=== PATIENT | male | born 1940 | race Caucasian/White ===

== ENCOUNTER 2023-02-21 14:09 | Inpatient (IN) | payer MEDICARE ==
[~2023-02-21] VITALS: Ht 182.9 cm; Wt 102.1 kg
[2023-02-21] MEDS: METOPROLOL SUCC *XL* 25MG TAB (TopROL *XL*) PO SCH (09:00)
[~2023-02-21 14:09] MED LIST: CEPH500C PO; CLOTR1CR TOP; DIGO0.123 PO; ELIQ5TAB PO; ENTR1TAB PO; FLUO20CA22 PO; FURO40TA2 PO; HUMA100I5 SC; INSU100I48 SC; METO1TAB7 PO; OMEP-173 PO; ROSU10TA6 PO
[2023-02-21] MEDS ORDERED: ONDANSETRON 4MG TAB PO PRN (14:30)
[2023-02-21] MEDS ORDERED: DEXTROSE 50% 50ML SYRINGE IV PRN (14:30)
[2023-02-21] MEDS ORDERED: GLUCAGON INJ 1MG VIAL SC PRN (14:30)
[2023-02-21] MEDS ORDERED: MAALOX 30 ML SUSP *UDC PO PRN (14:30)
[2023-02-21] MEDS ORDERED: GLUCOSE 4GM CHEW TABLET PO PRN (14:30)
[2023-02-21] MEDS: INSULIN LISPRO (NovoLOG) PER UNIT SC SCH ×2 (17:30→19:59)
[2023-02-21 17:40] VITALS: BP 130/50; TEMP 97; O2SAT 98
[2023-02-21] MEDS: CEPHALEXIN 500 MG CAP PO SCH (18:53)
[2023-02-21 20:00] VITALS: BP 115/56; TEMP 97.6; O2SAT 99
[2023-02-21] MEDS: APIXABAN 5 MG TAB (ELIQUIS) PO SCH (20:33)
[2023-02-21] MEDS: FLUoxetine 20MG CAP PO SCH (20:33)
[2023-02-21] MEDS: DOCUSATE SODIUM 100MG CAPSULE PO SCH (20:33)
[2023-02-21] MEDS: OMEPRAZOLE 20MG CAP PO SCH (20:33)
[2023-02-21] MEDS: LEVEMIR (INSULIN DETEMIR) 1 UNITS/0.01ML SC SCH (20:33)
[2023-02-21] MEDS: ACETAMINOPHEN TAB 650MG DOSE (2X325MG) PO PRN (21:13)
[2023-02-22] MEDS: CEPHALEXIN 500 MG CAP PO SCH ×5 (00:49→23:01)
[2023-02-22 06:00] VITALS: BP 112/59; TEMP 96.8; O2SAT 95
[2023-02-22 06:33] LABS: BASO % 0.5 % (0.0-1.0); EOS # 0.1 10^3/uL (0.0-0.5); EOS % 1.6 % (0.0-3.0); HEMATOCRIT 29.4 % (42.0-52.0); HEMOGLOBIN 10.3 g/dl (13.5-17.5); LYMPH # 1.3 10^3/uL (1.5-5.0); LYMPH % 14.7 % (24.0-44.0); MEAN CORPUSCULAR VOLUME 91.3 fl (80.0-96.0); MONO # 1.1 10^3/uL (0.0-0.8); MONO % 12.5 % (2.0-8.0); PLATELET COUNT, AUTOMATED 138 10^3/uL (150-450); RED BLOOD COUNT 3.22 10^6/uL (4.30-6.10); WHITE BLOOD COUNT 8.5 10^3/uL (4.0-10.0)
[2023-02-22 06:51] LABS: BLOOD UREA NITROGEN 23 MG/DL (9-23); CALCIUM LEVEL 8.5 MG/DL (8.3-10.6); CARBON DIOXIDE LEVEL 25 MMOL/L (20-31); CHLORIDE LEVEL 102 MMOL/L (98-107); CREATININE FOR GFR 0.78 MG/DL (0.70-1.30); GLOMERULAR FILTRATION RATE > 60.0 (>35); GLUCOSE, FASTING 219 MG/DL (74-106); POTASSIUM SERUM 4.4 MMOL/L (3.5-5.1); SODIUM LEVEL 133 MMOL/L (136-145)
[2023-02-22] MEDS: LEVEMIR (INSULIN DETEMIR) 1 UNITS/0.01ML SC SCH ×2 (07:16→20:33)
[2023-02-22] MEDS: ACETAMINOPHEN TAB 650MG DOSE (2X325MG) PO PRN ×3 (07:16→20:33)
[2023-02-22] MEDS: INSULIN LISPRO (NovoLOG) PER UNIT SC SCH ×4 (07:16→20:31)
[2023-02-22] MEDS: DOCUSATE SODIUM 100MG CAPSULE PO SCH ×2 (07:17→20:33)
[2023-02-22] MEDS: OMEPRAZOLE 20MG CAP PO SCH ×2 (07:17→20:33)
[2023-02-22] MEDS: DIGOXIN 0.125 MG TAB PO SCH (07:17)
[2023-02-22] MEDS: APIXABAN 5 MG TAB (ELIQUIS) PO SCH ×2 (07:17→20:33)
[2023-02-22] MEDS: METOPROLOL SUCC *XL* 25MG TAB (TopROL *XL*) PO SCH (07:17)
[2023-02-22] MEDS: FLUoxetine 20MG CAP PO SCH ×2 (07:17→20:33)
[2023-02-22] MEDS: ROSUVASTATIN 10 MG TAB (CRESTOR) PO SCH (07:17)
[2023-02-22] MEDS: CLOTRIMAZOLE 1% TOPICAL CREAM 30GM TOP SCH (07:18)
[2023-02-22] MEDS: FUROSEMIDE 20 MG TAB PO SCH (11:52)
[2023-02-22 14:00] VITALS: BP 104/56; TEMP 97.9; O2SAT 96
[2023-02-22] MEDS: LACTOBACILLUS ACIDOPHILUS CAP (BACID) PO SCH (17:10)
[2023-02-22 20:08] VITALS: BP 155/70; TEMP 98.1; O2SAT 100
[2023-02-23 05:28] VITALS: BP 136/66; TEMP 97.8; O2SAT 98
[2023-02-23] MEDS: CEPHALEXIN 500 MG CAP PO SCH ×3 (05:31→17:16)
[2023-02-23] MEDS: FLUoxetine 20MG CAP PO SCH ×2 (08:42→20:32)
[2023-02-23] MEDS: FUROSEMIDE 20 MG TAB PO SCH (08:42)
[2023-02-23] MEDS: LACTOBACILLUS ACIDOPHILUS CAP (BACID) PO SCH ×2 (08:42→17:16)
[2023-02-23] MEDS: APIXABAN 5 MG TAB (ELIQUIS) PO SCH ×2 (08:42→20:32)
[2023-02-23] MEDS: ROSUVASTATIN 10 MG TAB (CRESTOR) PO SCH (08:42)
[2023-02-23] MEDS: OMEPRAZOLE 20MG CAP PO SCH ×2 (08:42→20:33)
[2023-02-23] MEDS: DOCUSATE SODIUM 100MG CAPSULE PO SCH ×2 (08:42→20:32)
[2023-02-23] MEDS: LEVEMIR (INSULIN DETEMIR) 1 UNITS/0.01ML SC SCH ×2 (08:43→20:32)
[2023-02-23] MEDS: METOPROLOL SUCC *XL* 25MG TAB (TopROL *XL*) PO SCH (08:43)
[2023-02-23] MEDS: DIGOXIN 0.125 MG TAB PO SCH (08:43)
[2023-02-23] MEDS: CLOTRIMAZOLE 1% TOPICAL CREAM 30GM TOP SCH (08:44)
[2023-02-23] MEDS: INSULIN LISPRO (NovoLOG) PER UNIT SC SCH ×4 (08:44→20:36)
[2023-02-23 14:00] VITALS: BP 129/75; TEMP 98; O2SAT 98
[2023-02-23] MEDS ORDERED: FLUZONE HIGH DOSE(65YR UP)QUAD/PF 240MCG/0.7ML SYRINGE IM.IMMUN ONE (18:00)
[2023-02-23 20:00] VITALS: BP 126/54; TEMP 97.3; O2SAT 95
[2023-02-24] MEDS: CEPHALEXIN 500 MG CAP PO SCH ×5 (00:12→23:50)
[2023-02-24] MEDS: NORCO, ANEXSIA 5/325MG TABLET (HYDROcodone/ACETAMINOPHEN) PO PRN ×2 (00:43→18:32)
[2023-02-24 06:00] VITALS: BP 118/59; TEMP 98; O2SAT 96
[2023-02-24] MEDS: DOCUSATE SODIUM 100MG CAPSULE PO SCH ×2 (09:00→20:12)
[2023-02-24] MEDS: LEVEMIR (INSULIN DETEMIR) 1 UNITS/0.01ML SC SCH ×2 (09:17→20:11)
[2023-02-24] MEDS: OMEPRAZOLE 20MG CAP PO SCH ×2 (09:18→20:12)
[2023-02-24] MEDS: FLUoxetine 20MG CAP PO SCH ×2 (09:18→20:11)
[2023-02-24] MEDS: LACTOBACILLUS ACIDOPHILUS CAP (BACID) PO SCH ×2 (09:18→17:37)
[2023-02-24] MEDS: APIXABAN 5 MG TAB (ELIQUIS) PO SCH ×2 (09:18→20:12)
[2023-02-24] MEDS: ROSUVASTATIN 10 MG TAB (CRESTOR) PO SCH (09:18)
[2023-02-24] MEDS: INSULIN LISPRO (NovoLOG) PER UNIT SC SCH ×4 (09:18→20:12)
[2023-02-24] MEDS: METOPROLOL SUCC *XL* 25MG TAB (TopROL *XL*) PO SCH (09:19)
[2023-02-24] MEDS: FUROSEMIDE 20 MG TAB PO SCH (09:19)
[2023-02-24] MEDS: DIGOXIN 0.125 MG TAB PO SCH (09:19)
[2023-02-24] MEDS: CLOTRIMAZOLE 1% TOPICAL CREAM 30GM TOP SCH (09:20)
[2023-02-24 14:00] VITALS: BP 114/58; TEMP 98; O2SAT 97
[2023-02-24 20:00] VITALS: BP 121/59; TEMP 97.6; O2SAT 99
[2023-02-24] MEDS: ACETAMINOPHEN TAB 650MG DOSE (2X325MG) PO PRN (21:23)
[2023-02-25] MEDS: CEPHALEXIN 500 MG CAP PO SCH ×4 (05:41→23:29)
[2023-02-25 06:00] VITALS: TEMP 97.2; O2SAT 98
[2023-02-25] MEDS: INSULIN LISPRO (NovoLOG) PER UNIT SC SCH ×4 (07:30→20:23)
[2023-02-25] MEDS: LEVEMIR (INSULIN DETEMIR) 1 UNITS/0.01ML SC SCH ×2 (07:48→21:04)
[2023-02-25] MEDS: LACTOBACILLUS ACIDOPHILUS CAP (BACID) PO SCH ×2 (08:27→17:56)
[2023-02-25] MEDS: DIGOXIN 0.125 MG TAB PO SCH (08:27)
[2023-02-25] MEDS: FUROSEMIDE 20 MG TAB PO SCH (08:27)
[2023-02-25] MEDS: APIXABAN 5 MG TAB (ELIQUIS) PO SCH ×2 (08:27→21:01)
[2023-02-25] MEDS: OMEPRAZOLE 20MG CAP PO SCH ×2 (08:27→21:01)
[2023-02-25] MEDS: FLUoxetine 20MG CAP PO SCH ×2 (08:27→21:03)
[2023-02-25] MEDS: DOCUSATE SODIUM 100MG CAPSULE PO SCH ×2 (08:28→19:32)
[2023-02-25] MEDS: CLOTRIMAZOLE 1% TOPICAL CREAM 30GM TOP SCH (08:28)
[2023-02-25] MEDS: ROSUVASTATIN 10 MG TAB (CRESTOR) PO SCH (08:28)
[2023-02-25] MEDS: METOPROLOL SUCC *XL* 25MG TAB (TopROL *XL*) PO SCH (08:28)
[2023-02-25 14:00] VITALS: BP 140/70; TEMP 98; O2SAT 98
[2023-02-25 20:00] VITALS: BP 123/62; TEMP 98.4; O2SAT 96
[2023-02-25] MEDS: ACETAMINOPHEN TAB 650MG DOSE (2X325MG) PO PRN (21:02)
[2023-02-25] MEDS: NORCO, ANEXSIA 5/325MG TABLET (HYDROcodone/ACETAMINOPHEN) PO PRN (21:03)
[2023-02-26] MEDS: NORCO, ANEXSIA 5/325MG TABLET (HYDROcodone/ACETAMINOPHEN) PO PRN ×2 (03:24→14:47)
[2023-02-26] MEDS: CEPHALEXIN 500 MG CAP PO SCH ×3 (05:25→17:04)
[2023-02-26 06:00] VITALS: BP 118/64; TEMP 98; O2SAT 98
[2023-02-26] MEDS: DOCUSATE SODIUM 100MG CAPSULE PO SCH ×2 (07:14→19:50)
[2023-02-26] MEDS: METOPROLOL SUCC *XL* 25MG TAB (TopROL *XL*) PO SCH (07:15)
[2023-02-26] MEDS: INSULIN LISPRO (NovoLOG) PER UNIT SC SCH ×4 (07:20→19:52)
[2023-02-26] MEDS: DIGOXIN 0.125 MG TAB PO SCH (07:21)
[2023-02-26] MEDS: LACTOBACILLUS ACIDOPHILUS CAP (BACID) PO SCH ×2 (07:21→17:04)
[2023-02-26] MEDS: APIXABAN 5 MG TAB (ELIQUIS) PO SCH ×2 (07:21→20:12)
[2023-02-26] MEDS: ROSUVASTATIN 10 MG TAB (CRESTOR) PO SCH (07:21)
[2023-02-26] MEDS: OMEPRAZOLE 20MG CAP PO SCH ×2 (07:21→20:11)
[2023-02-26] MEDS: LEVEMIR (INSULIN DETEMIR) 1 UNITS/0.01ML SC SCH ×2 (07:21→20:11)
[2023-02-26] MEDS: FLUoxetine 20MG CAP PO SCH ×2 (07:21→20:11)
[2023-02-26] MEDS: FUROSEMIDE 20 MG TAB PO SCH (07:22)
[2023-02-26] MEDS: ACETAMINOPHEN TAB 650MG DOSE (2X325MG) PO PRN (09:20)
[2023-02-26 14:00] VITALS: BP 128/78; TEMP 97.8; O2SAT 97
[2023-02-26 20:00] VITALS: BP 126/60; TEMP 97.6; O2SAT 96
[2023-02-26] MEDS: GABAPENTIN 100 MG CAP PO SCH (20:11)
[2023-02-27] MEDS: CEPHALEXIN 500 MG CAP PO SCH ×4 (00:05→17:05)
[2023-02-27] MEDS: NORCO, ANEXSIA 5/325MG TABLET (HYDROcodone/ACETAMINOPHEN) PO PRN ×4 (00:22→20:22)
[2023-02-27 06:00] VITALS: BP 148/68; TEMP 97.2; O2SAT 97
[2023-02-27 06:45] LABS: HEMATOCRIT 31.9 % (42.0-52.0); HEMOGLOBIN 10.5 g/dl (13.5-17.5); MEAN CORPUSCULAR HEMOGLOBIN 31.3 pg (27.0-33.0); MEAN CORPUSCULAR HGB CONC 32.9 g/dl (32.0-36.5); MEAN CORPUSCULAR VOLUME 94.9 fl (80.0-96.0); PLATELET COUNT, AUTOMATED 191 10^3/uL (150-450); RED BLOOD COUNT 3.36 10^6/uL (4.30-6.10); WHITE BLOOD COUNT 7.4 10^3/uL (4.0-10.0)
[2023-02-27 07:15] LABS: BLOOD UREA NITROGEN 17 MG/DL (9-23); CALCIUM LEVEL 8.6 MG/DL (8.3-10.6); CARBON DIOXIDE LEVEL 32 MMOL/L (20-31); CHLORIDE LEVEL 102 MMOL/L (98-107); CREATININE FOR GFR 0.86 MG/DL (0.70-1.30); GLOMERULAR FILTRATION RATE > 60.0 (>35); GLUCOSE, FASTING 125 MG/DL (74-106); POTASSIUM SERUM 4.6 MMOL/L (3.5-5.1); SODIUM LEVEL 137 MMOL/L (136-145)
[2023-02-27] MEDS: LACTOBACILLUS ACIDOPHILUS CAP (BACID) PO SCH ×2 (07:23→17:05)
[2023-02-27] MEDS: OMEPRAZOLE 20MG CAP PO SCH ×2 (07:23→20:21)
[2023-02-27] MEDS: APIXABAN 5 MG TAB (ELIQUIS) PO SCH ×2 (07:23→20:21)
[2023-02-27] MEDS: INSULIN LISPRO (NovoLOG) PER UNIT SC SCH ×4 (07:23→20:10)
[2023-02-27] MEDS: LEVEMIR (INSULIN DETEMIR) 1 UNITS/0.01ML SC SCH ×2 (07:23→20:21)
[2023-02-27] MEDS: FLUoxetine 20MG CAP PO SCH ×2 (07:23→20:21)
[2023-02-27] MEDS: DIGOXIN 0.125 MG TAB PO SCH (07:24)
[2023-02-27] MEDS: FUROSEMIDE 20 MG TAB PO SCH (07:24)
[2023-02-27] MEDS: METOPROLOL SUCC *XL* 25MG TAB (TopROL *XL*) PO SCH (07:24)
[2023-02-27] MEDS: ROSUVASTATIN 10 MG TAB (CRESTOR) PO SCH (07:24)
[2023-02-27] MEDS: DOCUSATE SODIUM 100MG CAPSULE PO SCH ×2 (07:24→20:21)
[2023-02-27 14:00] VITALS: BP 115/60; TEMP 97.2; O2SAT 97
[2023-02-27 20:00] VITALS: BP 118/58; TEMP 97.7; O2SAT 96
[2023-02-27] MEDS: GABAPENTIN 100 MG CAP PO SCH (20:21)
[2023-02-28] MEDS: CEPHALEXIN 500 MG CAP PO SCH ×5 (00:06→23:52)
[2023-02-28] MEDS: NORCO, ANEXSIA 5/325MG TABLET (HYDROcodone/ACETAMINOPHEN) PO PRN ×2 (02:23→20:53)
[2023-02-28 06:00] VITALS: BP 114/59; TEMP 97.8; O2SAT 96
[2023-02-28] MEDS: FLUoxetine 20MG CAP PO SCH ×2 (08:59→20:53)
[2023-02-28] MEDS: APIXABAN 5 MG TAB (ELIQUIS) PO SCH ×2 (08:59→20:53)
[2023-02-28] MEDS: FUROSEMIDE 20 MG TAB PO SCH (09:00)
[2023-02-28] MEDS: OMEPRAZOLE 20MG CAP PO SCH ×2 (09:00→20:52)
[2023-02-28] MEDS: DIGOXIN 0.125 MG TAB PO SCH (09:00)
[2023-02-28] MEDS: ROSUVASTATIN 10 MG TAB (CRESTOR) PO SCH (09:00)
[2023-02-28] MEDS: LACTOBACILLUS ACIDOPHILUS CAP (BACID) PO SCH ×2 (09:00→17:09)
[2023-02-28] MEDS: DOCUSATE SODIUM 100MG CAPSULE PO SCH ×2 (09:00→21:00)
[2023-02-28] MEDS: INSULIN LISPRO (NovoLOG) PER UNIT SC SCH ×4 (09:01→21:00)
[2023-02-28] MEDS: LEVEMIR (INSULIN DETEMIR) 1 UNITS/0.01ML SC SCH ×2 (09:01→20:53)
[2023-02-28] MEDS: METOPROLOL SUCC *XL* 25MG TAB (TopROL *XL*) PO SCH (09:02)
[2023-02-28 14:00] VITALS: BP 97/53; TEMP 97.6; O2SAT 96
[2023-02-28 20:00] VITALS: BP 114/55; TEMP 97.9; O2SAT 98
[2023-02-28] MEDS: GABAPENTIN 100 MG CAP PO SCH (20:52)
[2023-03-01] MEDS: CEPHALEXIN 500 MG CAP PO SCH ×3 (05:39→17:06)
[2023-03-01 06:00] VITALS: BP 114/56; TEMP 97.6; O2SAT 97
[2023-03-01] MEDS: LACTOBACILLUS ACIDOPHILUS CAP (BACID) PO SCH ×2 (08:26→17:06)
[2023-03-01] MEDS: ROSUVASTATIN 10 MG TAB (CRESTOR) PO SCH (08:26)
[2023-03-01] MEDS: INSULIN LISPRO (NovoLOG) PER UNIT SC SCH ×4 (08:26→20:11)
[2023-03-01] MEDS: OMEPRAZOLE 20MG CAP PO SCH ×2 (08:26→20:20)
[2023-03-01] MEDS: FLUoxetine 20MG CAP PO SCH ×2 (08:26→20:20)
[2023-03-01] MEDS: DIGOXIN 0.125 MG TAB PO SCH (08:27)
[2023-03-01] MEDS: APIXABAN 5 MG TAB (ELIQUIS) PO SCH ×2 (08:27→20:20)
[2023-03-01] MEDS: METOPROLOL SUCC *XL* 25MG TAB (TopROL *XL*) PO SCH (08:27)
[2023-03-01] MEDS: FUROSEMIDE 20 MG TAB PO SCH (08:27)
[2023-03-01] MEDS: DOCUSATE SODIUM 100MG CAPSULE PO SCH ×2 (08:28→20:22)
[2023-03-01] MEDS: LEVEMIR (INSULIN DETEMIR) 1 UNITS/0.01ML SC SCH ×2 (08:28→20:22)
[2023-03-01] MEDS ORDERED: oxyCODONE 5MG TAB PO PRN (10:35)
[2023-03-01] MEDS: ACETAMINOPHEN TAB 650MG DOSE (2X325MG) PO SCH ×3 (13:21→20:21)
[2023-03-01 14:00] VITALS: BP 120/60; TEMP 98; O2SAT 97
[2023-03-01 19:37] VITALS: BP 104/55; TEMP 97.7; O2SAT 97
[2023-03-01] MEDS: GABAPENTIN 100 MG CAP PO SCH (20:20)
[2023-03-02] MEDS: CEPHALEXIN 500 MG CAP PO SCH ×2 (00:08→05:38)
[2023-03-02] MEDS: oxyCODONE 5MG TAB PO PRN ×3 (00:09→21:28)
[2023-03-02 05:40] VITALS: BP 128/60; TEMP 96.7; O2SAT 98
[2023-03-02 06:49] LABS: HEMATOCRIT 26.5 % (42.0-52.0); HEMOGLOBIN 8.9 g/dl (13.5-17.5); MEAN CORPUSCULAR HEMOGLOBIN 31.9 pg (27.0-33.0); MEAN CORPUSCULAR HGB CONC 33.6 g/dl (32.0-36.5); PLATELET COUNT, AUTOMATED 193 10^3/uL (150-450); RED BLOOD COUNT 2.79 10^6/uL (4.30-6.10); WHITE BLOOD COUNT 7.6 10^3/uL (4.0-10.0)
[2023-03-02 07:27] LABS: BLOOD UREA NITROGEN 18 MG/DL (9-23); CALCIUM LEVEL 7.9 MG/DL (8.3-10.6); CARBON DIOXIDE LEVEL 31 MMOL/L (20-31); CHLORIDE LEVEL 103 MMOL/L (98-107); CREATININE FOR GFR 0.95 MG/DL (0.70-1.30); GLOMERULAR FILTRATION RATE > 60.0 (>35); GLUCOSE, FASTING 105 MG/DL (74-106); POTASSIUM SERUM 4.2 MMOL/L (3.5-5.1); SODIUM LEVEL 139 MMOL/L (136-145)
[2023-03-02] MEDS: FLUoxetine 20MG CAP PO SCH ×2 (08:49→20:08)
[2023-03-02] MEDS: ALPRAZolam 0.25 MG TAB PO PRN (08:50)
[2023-03-02] MEDS: ROSUVASTATIN 10 MG TAB (CRESTOR) PO SCH (08:50)
[2023-03-02] MEDS: DIGOXIN 0.125 MG TAB PO SCH (08:50)
[2023-03-02] MEDS: FUROSEMIDE 20 MG TAB PO SCH (08:50)
[2023-03-02] MEDS: LACTOBACILLUS ACIDOPHILUS CAP (BACID) PO SCH ×2 (08:51→18:53)
[2023-03-02] MEDS: APIXABAN 5 MG TAB (ELIQUIS) PO SCH ×2 (08:51→20:07)
[2023-03-02] MEDS: OMEPRAZOLE 20MG CAP PO SCH ×2 (08:51→20:07)
[2023-03-02] MEDS: ACETAMINOPHEN TAB 650MG DOSE (2X325MG) PO SCH ×4 (08:51→20:07)
[2023-03-02] MEDS: METOPROLOL SUCC *XL* 25MG TAB (TopROL *XL*) PO SCH (08:52)
[2023-03-02] MEDS: LEVEMIR (INSULIN DETEMIR) 1 UNITS/0.01ML SC SCH ×2 (08:53→20:08)
[2023-03-02] MEDS: INSULIN LISPRO (NovoLOG) PER UNIT SC SCH ×4 (08:54→19:54)
[2023-03-02] MEDS: DOCUSATE SODIUM 100MG CAPSULE PO SCH ×2 (08:54→20:07)
[2023-03-02 14:00] VITALS: BP 116/57; TEMP 97.8; O2SAT 98
[2023-03-02] MEDS: GABAPENTIN 100 MG CAP PO SCH (20:07)
[2023-03-02 20:15] VITALS: BP 109/55; TEMP 96.7; O2SAT 98
[2023-03-03 05:23] VITALS: BP 121/60; TEMP 97.5; O2SAT 97
[2023-03-03] MEDS: INSULIN LISPRO (NovoLOG) PER UNIT SC SCH ×4 (07:30→20:28)
[2023-03-03] MEDS: ACETAMINOPHEN TAB 650MG DOSE (2X325MG) PO SCH ×4 (07:49→20:27)
[2023-03-03] MEDS: DIGOXIN 0.125 MG TAB PO SCH (07:51)
[2023-03-03] MEDS: FUROSEMIDE 20 MG TAB PO SCH (07:51)
[2023-03-03] MEDS: ROSUVASTATIN 10 MG TAB (CRESTOR) PO SCH (07:51)
[2023-03-03] MEDS: OMEPRAZOLE 20MG CAP PO SCH ×2 (07:51→20:27)
[2023-03-03] MEDS: APIXABAN 5 MG TAB (ELIQUIS) PO SCH ×2 (07:51→20:27)
[2023-03-03] MEDS: METOPROLOL SUCC *XL* 25MG TAB (TopROL *XL*) PO SCH (07:51)
[2023-03-03] MEDS: LEVEMIR (INSULIN DETEMIR) 1 UNITS/0.01ML SC SCH ×2 (07:52→20:28)
[2023-03-03] MEDS: DOCUSATE SODIUM 100MG CAPSULE PO SCH ×2 (07:52→20:29)
[2023-03-03] MEDS: FLUoxetine 20MG CAP PO SCH ×2 (07:52→20:27)
[2023-03-03] MEDS: oxyCODONE 5MG TAB PO PRN ×2 (10:15→20:40)
[2023-03-03 14:00] VITALS: BP 115/59; TEMP 98.3; O2SAT 96
[2023-03-03 19:44] VITALS: BP 147/63; TEMP 97.4; O2SAT 97
[2023-03-03] MEDS: GABAPENTIN 100 MG CAP PO SCH (20:27)
[2023-03-04 06:00] VITALS: BP 149/70; TEMP 96.1; O2SAT 97
[2023-03-04] MEDS: FLUoxetine 20MG CAP PO SCH ×2 (07:25→20:08)
[2023-03-04] MEDS: INSULIN LISPRO (NovoLOG) PER UNIT SC SCH ×4 (07:25→19:55)
[2023-03-04] MEDS: APIXABAN 5 MG TAB (ELIQUIS) PO SCH ×2 (07:25→20:08)
[2023-03-04] MEDS: ACETAMINOPHEN TAB 650MG DOSE (2X325MG) PO SCH ×4 (07:25→20:09)
[2023-03-04] MEDS: LEVEMIR (INSULIN DETEMIR) 1 UNITS/0.01ML SC SCH ×2 (07:25→20:08)
[2023-03-04] MEDS: OMEPRAZOLE 20MG CAP PO SCH ×2 (07:25→20:08)
[2023-03-04] MEDS: DOCUSATE SODIUM 100MG CAPSULE PO SCH ×2 (07:26→20:07)
[2023-03-04] MEDS: METOPROLOL SUCC *XL* 25MG TAB (TopROL *XL*) PO SCH (07:26)
[2023-03-04] MEDS: FUROSEMIDE 20 MG TAB PO SCH (07:26)
[2023-03-04] MEDS: ROSUVASTATIN 10 MG TAB (CRESTOR) PO SCH (07:26)
[2023-03-04] MEDS: DIGOXIN 0.125 MG TAB PO SCH (07:26)
[2023-03-04] MEDS: oxyCODONE 5MG TAB PO PRN (09:19)
[2023-03-04 14:00] VITALS: BP 136/65; TEMP 97.4; O2SAT 97
[2023-03-04 20:00] VITALS: BP 129/63; TEMP 98; O2SAT 98
[2023-03-04] MEDS: GABAPENTIN 100 MG CAP PO SCH (20:08)
[2023-03-05 06:00] VITALS: BP 133/67; TEMP 97.5; O2SAT 96
[2023-03-05] MEDS: LEVEMIR (INSULIN DETEMIR) 1 UNITS/0.01ML SC SCH ×2 (08:44→20:06)
[2023-03-05] MEDS: OMEPRAZOLE 20MG CAP PO SCH ×2 (08:45→20:06)
[2023-03-05] MEDS: FLUoxetine 20MG CAP PO SCH ×2 (08:45→20:07)
[2023-03-05] MEDS: INSULIN LISPRO (NovoLOG) PER UNIT SC SCH ×4 (08:45→20:08)
[2023-03-05] MEDS: APIXABAN 5 MG TAB (ELIQUIS) PO SCH ×2 (08:45→20:07)
[2023-03-05] MEDS: FUROSEMIDE 20 MG TAB PO SCH (08:45)
[2023-03-05] MEDS: ROSUVASTATIN 10 MG TAB (CRESTOR) PO SCH (08:45)
[2023-03-05] MEDS: DIGOXIN 0.125 MG TAB PO SCH (08:45)
[2023-03-05] MEDS: ACETAMINOPHEN TAB 650MG DOSE (2X325MG) PO SCH ×4 (08:46→20:07)
[2023-03-05] MEDS: METOPROLOL SUCC *XL* 25MG TAB (TopROL *XL*) PO SCH (08:46)
[2023-03-05] MEDS: DOCUSATE SODIUM 100MG CAPSULE PO SCH ×2 (08:46→20:06)
[2023-03-05 14:00] VITALS: BP 126/66; TEMP 98.7; O2SAT 97
[2023-03-05 20:00] VITALS: BP 141/64; TEMP 97.4; O2SAT 98
[2023-03-05] MEDS: GABAPENTIN 100 MG CAP PO SCH (20:06)
[2023-03-06] MEDS: oxyCODONE 5MG TAB PO PRN (02:51)
[2023-03-06] MEDS: ALPRAZolam 0.25 MG TAB PO PRN ×2 (02:51→20:34)
[2023-03-06 06:00] VITALS: BP 142/68; TEMP 97.3; O2SAT 97
[2023-03-06] MEDS: INSULIN LISPRO (NovoLOG) PER UNIT SC SCH ×4 (08:15→20:13)
[2023-03-06] MEDS: LEVEMIR (INSULIN DETEMIR) 1 UNITS/0.01ML SC SCH ×2 (08:15→20:32)
[2023-03-06] MEDS: ACETAMINOPHEN TAB 650MG DOSE (2X325MG) PO SCH ×4 (08:16→20:33)
[2023-03-06] MEDS: METOPROLOL SUCC *XL* 25MG TAB (TopROL *XL*) PO SCH (08:16)
[2023-03-06] MEDS: OMEPRAZOLE 20MG CAP PO SCH ×2 (08:16→20:33)
[2023-03-06] MEDS: FLUoxetine 20MG CAP PO SCH ×2 (08:16→20:33)
[2023-03-06] MEDS: ROSUVASTATIN 10 MG TAB (CRESTOR) PO SCH (08:16)
[2023-03-06] MEDS: DOCUSATE SODIUM 100MG CAPSULE PO SCH ×2 (08:17→20:31)
[2023-03-06] MEDS: APIXABAN 5 MG TAB (ELIQUIS) PO SCH ×2 (08:17→20:33)
[2023-03-06] MEDS: FUROSEMIDE 20 MG TAB PO SCH (08:17)
[2023-03-06] MEDS: DIGOXIN 0.125 MG TAB PO SCH (08:17)
[2023-03-06 14:00] VITALS: BP 119/60; TEMP 98.1; O2SAT 98
[2023-03-06 20:00] VITALS: BP 136/64; TEMP 98.3; O2SAT 96
[2023-03-06] MEDS: GABAPENTIN 100 MG CAP PO SCH (20:33)
[2023-03-07 06:01] VITALS: BP 141/75; TEMP 98.1; O2SAT 97
[2023-03-07] MEDS: INSULIN LISPRO (NovoLOG) PER UNIT SC SCH ×2 (06:56→12:00)
[2023-03-07] MEDS: LEVEMIR (INSULIN DETEMIR) 1 UNITS/0.01ML SC SCH (06:56)
[2023-03-07] MEDS: DOCUSATE SODIUM 100MG CAPSULE PO SCH (06:56)
[2023-03-07] MEDS: APIXABAN 5 MG TAB (ELIQUIS) PO SCH (07:36)
[2023-03-07] MEDS: ROSUVASTATIN 10 MG TAB (CRESTOR) PO SCH (07:36)
[2023-03-07] MEDS: ACETAMINOPHEN TAB 650MG DOSE (2X325MG) PO SCH ×2 (07:36→12:00)
[2023-03-07] MEDS: FUROSEMIDE 20 MG TAB PO SCH (07:36)
[2023-03-07] MEDS: DIGOXIN 0.125 MG TAB PO SCH (07:36)
[2023-03-07] MEDS: FLUoxetine 20MG CAP PO SCH (07:36)
[2023-03-07] MEDS: OMEPRAZOLE 20MG CAP PO SCH (07:36)
[2023-03-07 07:37] VITALS: BP 141/75
[2023-03-07] MEDS: METOPROLOL SUCC *XL* 25MG TAB (TopROL *XL*) PO SCH (07:37)
[2023-03-07] MEDS ORDERED: GABA-1171 PO (11:01)
[2023-03-07] MEDS ORDERED: FURO20TA2 PO (11:01)
[2023-03-07] MEDS ORDERED: OXYC-517 PO (11:01)
[2023-03-07] MEDS ORDERED: METO1TAB32 PO (11:33)
== END 2023-03-07 12:15 | disposition home health service (06) | DRG 560 ==
LOC: M PM&R 18:26
PROVIDERS: ADMIT Physical Medicine & Rehabilitation; ATTEND Student in an Organized Health Care Education/Training Program
DX: S72.001D Fracture of unspecified part of neck of right femur, subsequent encounter for closed fracture with routine healing (principal); I50.32 Chronic diastolic (congestive) heart failure; I48.91 Unspecified atrial fibrillation; E11.51 Type 2 diabetes mellitus with diabetic peripheral angiopathy without gangrene; E78.5 Hyperlipidemia, unspecified; I11.0 Hypertensive heart disease with heart failure; I73.9 Peripheral vascular disease, unspecified; M19.90 Unspecified osteoarthritis, unspecified site; F41.9 Anxiety disorder, unspecified; F32.A Depression, unspecified; G89.18 Other acute postprocedural pain; I44.7 Left bundle-branch block, unspecified; K21.9 Gastro-esophageal reflux disease without esophagitis; R33.9 Retention of urine, unspecified; D69.6 Thrombocytopenia, unspecified; H91.10 Presbycusis, unspecified ear; Z92.3 Personal history of irradiation; Z92.21 Personal history of antineoplastic chemotherapy; Z74.1 Need for assistance with personal care; Z74.09 Other reduced mobility; Z95.810 Presence of automatic (implantable) cardiac defibrillator; Z79.01 Long term (current) use of anticoagulants; Z95.2 Presence of prosthetic heart valve; Z86.73 Personal history of transient ischemic attack (TIA), and cerebral infarction without residual deficits; Z87.891 Personal history of nicotine dependence; Z96.641 Presence of right artificial hip joint; Z85.46 Personal history of malignant neoplasm of prostate; Z79.4 Long term (current) use of insulin; Z79.899 Other long term (current) drug therapy; T80.1XXD Vascular complications following infusion, transfusion and therapeutic injection, subsequent encounter

== ENCOUNTER → 2023-03-07 | Outpatient (CLI) | payer MEDICARE ==
[~2023-03-07] MED LIST changes: +FURO20TA2 PO; +GABA-1171 PO; +METO1TAB32 PO; +OXYC-517 PO
== END ==
LOC: M SOG 07:56
PROVIDERS: ATTEND Physician Assistant
DX: Z53.9 Procedure and treatment not carried out, unspecified reason (principal)

== ENCOUNTER 2023-03-28 05:01 | Inpatient (IN) | payer MEDICARE ==
[~2023-03-28] VITALS: Ht 185.4 cm; Wt 91.3 kg
[2023-03-28 05:52] LABS: BASO # 0.1 10^3/uL (0.0-0.2); BASO % 0.3 % (0.0-1.0); HEMATOCRIT 35.9 % (42.0-52.0); HEMOGLOBIN 11.6 g/dl (13.5-17.5); LYMPH # 1.2 10^3/uL (1.5-5.0); LYMPH % 6.1 % (24.0-44.0); MEAN CORPUSCULAR HEMOGLOBIN 30.6 pg (27.0-33.0); MEAN CORPUSCULAR HGB CONC 32.3 g/dl (32.0-36.5); MEAN CORPUSCULAR VOLUME 94.7 fl (80.0-96.0); MONO # 1.8 10^3/uL (0.0-0.8); NEUTROPHILS # 16.4 10^3/uL (1.5-8.5); NEUTROPHILS % 83.9 % (36.0-66.0); PLATELET COUNT, AUTOMATED 155 10^3/uL (150-450); RED BLOOD COUNT 3.79 10^6/uL (4.30-6.10); WHITE BLOOD COUNT 19.5 10^3/uL (4.0-10.0)
[2023-03-28 06:14] LABS: RSV AMPLIFICATION NEGATIVE (NEGATIVE)
[2023-03-28 06:16] LABS: CK-MB VALUE MASS < 1.0 NG/ML (<3.6)
[2023-03-28 06:18] LABS: ALBUMIN 2.9 G/DL (3.2-5.2); ALKALINE PHOSPHATASE 70 U/L (46-116); ALT/SGPT < 9 U/L (7.0-40); AST/SGOT 18 U/L (<34); BILIRUBIN,DIRECT 0.6 MG/DL (<0.4); BILIRUBIN,TOTAL 1.3 MG/DL (0.3-1.2); BLOOD UREA NITROGEN 19 MG/DL (9-23); CALCIUM LEVEL 8.5 MG/DL (8.3-10.6); CARBON DIOXIDE LEVEL 23 MMOL/L (20-31); CHLORIDE LEVEL 104 MMOL/L (98-107); CPK CREATINE PHOSPHOKINASE 97 U/L (46-171); GLOMERULAR FILTRATION RATE > 60.0 (>35); GLUCOSE, FASTING 204 MG/DL (74-106); MB/CK RELATIVE INDEX 1.03 (< OR =4); SODIUM LEVEL 136 MMOL/L (136-145); TOTAL PROTEIN 6.5 G/DL (5.7-8.2)
[2023-03-28 06:20] LABS: THYROID STIMULATING HORMONE 1.475 uIU/ML (0.55-4.78)
[2023-03-28] MEDS ORDERED: TRAZ-252 PO (07:31)
[2023-03-28 07:56] LABS: DIGOXIN LEVEL 0.5 NG/ML (0.8-2.0)
[2023-03-28] MEDS ORDERED: ISOVUE-370 76% 100ML VIAL As Ordered ONE (09:24)
[2023-03-28] MEDS: AZITHROMYCIN INJ 500 MG, VIAL MATE ADAPTER 1 EACH in NS 250 ML IV ONE (10:56)
[2023-03-28] MEDS: PANTOPRAZOLE 40MG VIAL IV ONE (10:56)
[2023-03-28] MEDS: ONDANSETRON 4MG 2ML VIAL IV ONE (10:56)
[2023-03-28] MEDS: PANTOPRAZOLE SODIUM 40 MG in D5W 50 ML IV SCH (10:56)
[2023-03-28] MEDS ORDERED: MED REC IN PROGRESS XX SCH (11:00)
[2023-03-28] MEDS ORDERED: GLUCOSE 4GM CHEW TABLET PO PRN (12:00)
[2023-03-28] MEDS ORDERED: DEXTROSE 50% 50ML SYRINGE IV PRN (12:00)
[2023-03-28] MEDS ORDERED: GLUCAGON INJ 1MG VIAL SC PRN (12:00)
[2023-03-28] MEDS: FAMOTIDINE 20 MG TAB PO SCH (12:23)
[2023-03-28] MEDS ORDERED: METO1TAB7 PO (12:29)
[2023-03-28] MEDS ORDERED: NOVOINJ3 SC (12:29)
[2023-03-28] MEDS ORDERED: HOME MED LIST COMPLETE! XX SCH (12:30)
[2023-03-28] MEDS: CEFEPIME HCL 2 GM in D5W MINI-BAG PLUS 50 ML IV SCH (13:05)
[2023-03-28] MEDS: INSULIN LISPRO (NovoLOG) PER UNIT SC SCH ×2 (13:06→20:05)
[2023-03-28 13:49] VITALS: BP 133/56; TEMP 97.8; O2SAT 98
[2023-03-28] MEDS: oxyCODONE 5MG TAB PO PRN (14:35)
[2023-03-28] MEDS: DIGOXIN 0.125 MG TAB PO SCH (14:35)
[2023-03-28 16:09] VITALS: BP 110/61; TEMP 96.9; O2SAT 95
[2023-03-28 19:22] VITALS: BP 92/51; TEMP 97.4; O2SAT 91
[2023-03-28] MEDS: GABAPENTIN 100 MG CAP PO SCH (20:04)
[2023-03-28] MEDS: METOPROLOL SUCC *XL* 25MG TAB (TopROL *XL*) PO SCH (20:05)
[2023-03-28] MEDS: LEVEMIR (INSULIN DETEMIR) 1 UNITS/0.01ML SC SCH (20:06)
[2023-03-28] MEDS: NS 500 ML IV ONE (21:12)
[2023-03-28 21:44] LABS: HEMATOCRIT 32.4 % (42.0-52.0); HEMOGLOBIN 10.5 g/dl (13.5-17.5)
[2023-03-28 23:35] VITALS: BP 106/55; TEMP 98.3; O2SAT 94
[2023-03-29] MEDS: NS 1,000 ML IV SCH
[2023-03-29 03:50] VITALS: BP 126/59; TEMP 97.3; O2SAT 96
[2023-03-29 04:10] LABS: BASO % 0.2 % (0.0-1.0); EOS # 0.2 10^3/uL (0.0-0.5); EOS % 0.9 % (0.0-3.0); HEMATOCRIT 31.3 % (42.0-52.0); HEMOGLOBIN 10.3 g/dl (13.5-17.5); LYMPH # 1.7 10^3/uL (1.5-5.0); LYMPH % 9.3 % (24.0-44.0); MEAN CORPUSCULAR HEMOGLOBIN 31.7 pg (27.0-33.0); MEAN CORPUSCULAR HGB CONC 32.9 g/dl (32.0-36.5); MEAN CORPUSCULAR VOLUME 96.3 fl (80.0-96.0); MONO # 1.1 10^3/uL (0.0-0.8); MONO % 5.9 % (2.0-8.0); NEUTROPHILS # 14.8 10^3/uL (1.5-8.5); NEUTROPHILS % 82.9 % (36.0-66.0); PLATELET COUNT, AUTOMATED 122 10^3/uL (150-450); RED BLOOD COUNT 3.25 10^6/uL (4.30-6.10); WHITE BLOOD COUNT 17.9 10^3/uL (4.0-10.0)
[2023-03-29 04:36] LABS: ALBUMIN 2.1 G/DL (3.2-5.2); ALKALINE PHOSPHATASE 56 U/L (46-116); ALT/SGPT < 9 U/L (7.0-40); AST/SGOT 12 U/L (<34); BILIRUBIN,TOTAL 0.7 MG/DL (0.3-1.2); BLOOD UREA NITROGEN 29 MG/DL (9-23); CALCIUM LEVEL 7.2 MG/DL (8.3-10.6); CARBON DIOXIDE LEVEL 26 MMOL/L (20-31); CHLORIDE LEVEL 105 MMOL/L (98-107); CREATININE FOR GFR 1.24 MG/DL (0.70-1.30); GLOMERULAR FILTRATION RATE 59.1 (>35); GLUCOSE, FASTING 109 MG/DL (74-106); MAGNESIUM LEVEL 1.6 MG/DL (1.8-2.4); PHOSPHORUS LEVEL 3.1 MG/DL (2.4-5.1); POTASSIUM SERUM 3.9 MMOL/L (3.5-5.1); SODIUM LEVEL 136 MMOL/L (136-145); TOTAL PROTEIN 5.3 G/DL (5.7-8.2)
[2023-03-29 07:51] VITALS: BP 116/57; TEMP 97.1; O2SAT 94
[2023-03-29] MEDS: AZITHROMYCIN INJ 500 MG, VIAL MATE ADAPTER 1 EACH in NS 250 ML IV SCH (08:37)
[2023-03-29] MEDS: FLUoxetine 20MG CAP PO SCH (08:37)
[2023-03-29] MEDS: ROSUVASTATIN 10 MG TAB (CRESTOR) PO SCH (08:38)
[2023-03-29] MEDS: MAG SULF 1GM/100ML (MAG RUN) 1 GM in IV 1 EA IV SCH (10:12)
[2023-03-29 12:00] VITALS: BP 115/57; TEMP 97.2; O2SAT 95
[2023-03-29] MEDS: ENOXAPARIN 40MG/0.4ML SYRINGE (J1650 PER 10MG) SC SCH (12:04)
[2023-03-29 15:31] VITALS: BP 119/56; TEMP 97.4; O2SAT 92
[2023-03-29 19:30] VITALS: BP 134/61; TEMP 97.2; O2SAT 96
[2023-03-29] MEDS: OMEPRAZOLE 20MG CAP PO SCH (21:14)
[2023-03-30 00:04] VITALS: BP 131/60; TEMP 97.2; O2SAT 93
[2023-03-30 03:33] VITALS: BP 117/56; TEMP 96.7; O2SAT 90
[2023-03-30 05:33] LABS: HEMATOCRIT 29.9 % (42.0-52.0); HEMOGLOBIN 9.8 g/dl (13.5-17.5); MEAN CORPUSCULAR HEMOGLOBIN 31.4 pg (27.0-33.0); MEAN CORPUSCULAR HGB CONC 32.8 g/dl (32.0-36.5); MEAN CORPUSCULAR VOLUME 95.8 fl (80.0-96.0); PLATELET COUNT, AUTOMATED 123 10^3/uL (150-450); RED BLOOD COUNT 3.12 10^6/uL (4.30-6.10); WHITE BLOOD COUNT 11.8 10^3/uL (4.0-10.0)
[2023-03-30 05:47] LABS: BLOOD UREA NITROGEN 23 MG/DL (9-23); CALCIUM LEVEL 7.7 MG/DL (8.3-10.6); CARBON DIOXIDE LEVEL 26 MMOL/L (20-31); CHLORIDE LEVEL 105 MMOL/L (98-107); CREATININE FOR GFR 0.88 MG/DL (0.70-1.30); GLOMERULAR FILTRATION RATE > 60.0 (>35); GLUCOSE, FASTING 133 MG/DL (74-106); MAGNESIUM LEVEL 1.8 MG/DL (1.8-2.4); PHOSPHORUS LEVEL 2.5 MG/DL (2.4-5.1); POTASSIUM SERUM 4.2 MMOL/L (3.5-5.1); SODIUM LEVEL 136 MMOL/L (136-145)
[2023-03-30 07:10] VITALS: BP 130/65; TEMP 97; O2SAT 97
[2023-03-30] MEDS: AZITHROMYCIN 250MG TABLET PO SCH (08:23)
[2023-03-30] MEDS: APIXABAN 5 MG TAB (ELIQUIS) PO SCH (08:27)
[2023-03-30] MEDS ORDERED: LEVO1TAB40 PO (10:10)
[2023-03-30] MEDS: FUROSEMIDE 20 MG TAB PO SCH (12:00)
[2023-03-30 14:15] VITALS: BP 109/56; TEMP 97.5; O2SAT 99
[2023-03-30 15:08] LABS: BODY FLUID CULTURE Not indicated. (.); LEGIONELLA ANTIGEN URINE Negative (Negative); ORGANISM ID Not indicated. (.); SPECIMEN SOURCE Urine (.); URINE STREP PNEUMONIAE ANTIGEN Negative (Negative)
[2023-03-31] MEDS: LevoFLOXacin 750 MG TABLET PO SCH (05:29)
[2023-03-31 06:00] VITALS: BP 120/74; TEMP 97.3; O2SAT 97
[2023-03-31 06:02] LABS: HEMATOCRIT 33.1 % (42.0-52.0); HEMOGLOBIN 11.1 g/dl (13.5-17.5); MEAN CORPUSCULAR HGB CONC 33.5 g/dl (32.0-36.5); MEAN CORPUSCULAR VOLUME 92.5 fl (80.0-96.0); PLATELET COUNT, AUTOMATED 143 10^3/uL (150-450); RED BLOOD COUNT 3.58 10^6/uL (4.30-6.10)
[2023-03-31] MEDS: traZODone 50 MG TAB PO PRN (22:09)
[2023-04-01 05:00] VITALS: BP 127/70; TEMP 97.5; O2SAT 94
[2023-04-02 05:45] VITALS: BP 134/73; TEMP 97.5; O2SAT 94
[2023-04-02 14:00] VITALS: BP 136/73; TEMP 97.7; O2SAT 94
[2023-04-02 21:02] VITALS: BP 137/74; TEMP 97.7; O2SAT 97
[2023-04-03 05:24] VITALS: BP 141/75; TEMP 97.5; O2SAT 98
[2023-04-03 08:42] VITALS: BP 140/74
[2023-04-03 12:33] VITALS: BP 136/78
[2023-04-03] MEDS: SENOKOT S TAB PO SCH (12:33)
[2023-04-04] MEDS: MOM 30ML SUSPENSION UDC PO PRN (05:03)
[2023-04-04 06:00] VITALS: BP 142/76; TEMP 97.7; O2SAT 95
[2023-04-04] MEDS: BISACODYL 10MG SUPP PR PRN (08:26)
[2023-04-04 19:21] LABS: HEMATOCRIT 30.4 % (42.0-52.0); MEAN CORPUSCULAR HEMOGLOBIN 30.3 pg (27.0-33.0); MEAN CORPUSCULAR HGB CONC 32.9 g/dl (32.0-36.5); MEAN CORPUSCULAR VOLUME 92.1 fl (80.0-96.0); PLATELET COUNT, AUTOMATED 172 10^3/uL (150-450); WHITE BLOOD COUNT 8.4 10^3/uL (4.0-10.0)
[2023-04-04 19:52] LABS: BLOOD UREA NITROGEN 16 MG/DL (9-23); CALCIUM LEVEL 8.2 MG/DL (8.3-10.6); CARBON DIOXIDE LEVEL 28 MMOL/L (20-31); CHLORIDE LEVEL 101 MMOL/L (98-107); CREATININE FOR GFR 0.79 MG/DL (0.70-1.30); GLOMERULAR FILTRATION RATE > 60.0 (>35); GLUCOSE, FASTING 212 MG/DL (74-106); MAGNESIUM LEVEL 1.6 MG/DL (1.8-2.4); POTASSIUM SERUM 4.1 MMOL/L (3.5-5.1); SODIUM LEVEL 134 MMOL/L (136-145)
[2023-04-04 19:58] VITALS: BP 135/68
[2023-04-04] MEDS: MAGNESIUM OXIDE 400MG TAB (MAG-OX) PO ONE ×2 (21:02→22:26)
[2023-04-05 06:00] VITALS: BP 137/68; TEMP 98.4; O2SAT 96
[2023-04-05 07:56] VITALS: BP 139/69
[2023-04-05] MEDS: LIDOCAINE 5% (LIDODERM) PATCH TD SCH (09:08)
[2023-04-05 12:03] VITALS: BP 134/69
[2023-04-05 17:45] VITALS: BP 117/77
[2023-04-06 08:00] VITALS: BP 127/66; TEMP 97.9; O2SAT 94
[2023-04-06] MEDS: ACETAMINOPHEN TAB 650MG DOSE (2X325MG) PO PRN (13:16)
[2023-04-07 06:00] VITALS: BP 151/70; TEMP 97.9; O2SAT 96
[2023-04-07 12:00] VITALS: BP 143/78
[2023-04-07 12:20] VITALS: BP 143/78
[2023-04-07 17:35] LABS: HEMATOCRIT 32.3 % (42.0-52.0); HEMOGLOBIN 10.7 g/dl (13.5-17.5)
[2023-04-08 05:05] VITALS: BP 152/78; TEMP 97.7; O2SAT 96
[2023-04-08 10:44] VITALS: BP 148/75
[2023-04-08] MEDS: PERCOCET 5MG/325MG TAB PO PRN (10:45)
[2023-04-09 05:23] VITALS: BP 143/80; TEMP 97.9; O2SAT 95
[2023-04-10 06:00] VITALS: BP 128/75; TEMP 97.7; O2SAT 93
[2023-04-11 05:20] VITALS: BP 139/78; TEMP 97.7; O2SAT 95
[2023-04-11 08:39] VITALS: BP 139/75
[2023-04-13 08:54] VITALS: BP 128/73; TEMP 97.1; O2SAT 93
== END 2023-04-11 09:04 | DRG 853 ==
LOC: M ED 05:01 → M ED INP 11:16 → M PCU 13:40 → M MSPAV 03-30 14:08
PROVIDERS: ADMIT Internal Medicine; ATTEND Student in an Organized Health Care Education/Training Program
PROC: 0JBG0ZZ Excision of Right Lower Arm Subcutaneous Tissue and Fascia, Open Approach (ICD-10-PCS; principal; 2023-03-29)
DX: A41.9 Sepsis, unspecified organism (principal); J18.9 Pneumonia, unspecified organism; K29.71 Gastritis, unspecified, with bleeding; N12 Tubulo-interstitial nephritis, not specified as acute or chronic; I50.32 Chronic diastolic (congestive) heart failure; T80.1XXA Vascular complications following infusion, transfusion and therapeutic injection, initial encounter; E11.52 Type 2 diabetes mellitus with diabetic peripheral angiopathy with gangrene; I11.0 Hypertensive heart disease with heart failure; K21.9 Gastro-esophageal reflux disease without esophagitis; E78.5 Hyperlipidemia, unspecified; M19.90 Unspecified osteoarthritis, unspecified site; F32.A Depression, unspecified; D69.6 Thrombocytopenia, unspecified; K59.00 Constipation, unspecified; I48.91 Unspecified atrial fibrillation; Z79.01 Long term (current) use of anticoagulants; Z79.4 Long term (current) use of insulin; F41.9 Anxiety disorder, unspecified; Z92.21 Personal history of antineoplastic chemotherapy; Z85.46 Personal history of malignant neoplasm of prostate; Z86.73 Personal history of transient ischemic attack (TIA), and cerebral infarction without residual deficits; Z92.3 Personal history of irradiation; Z88.0 Allergy status to penicillin; Z88.8 Allergy status to other drugs, medicaments and biological substances; Z79.899 Other long term (current) drug therapy; Z95.2 Presence of prosthetic heart valve; Z96.611 Presence of right artificial shoulder joint; Z96.612 Presence of left artificial shoulder joint

== ENCOUNTER 2023-12-10 21:39 | Emergency (ER) | payer MEDICARE ==
[~2023-12-10 21:39] MED LIST changes: +FLUO-365 PO; -FLUO20CA22 PO; +LEVO1TAB40 PO; +NOVOINJ3 SC; -ROSU10TA6 PO; +ROSU10TA61 PO; +TRAZ-252 PO
[2023-12-10 21:54] VITALS: TEMP 98.9
[2023-12-10 22:29] LABS: BASO % 0.3 % (0.0-1.0); EOS % 0.3 % (0.0-3.0); HEMATOCRIT 40.1 % (42.0-52.0); HEMOGLOBIN 13.5 g/dl (13.5-17.5); LYMPH # 0.9 10^3/uL (1.5-5.0); LYMPH % 7.6 % (24.0-44.0); MEAN CORPUSCULAR HEMOGLOBIN 31.2 pg (27.0-33.0); MEAN CORPUSCULAR HGB CONC 33.7 g/dl (32.0-36.5); MEAN CORPUSCULAR VOLUME 92.6 fl (80.0-96.0); MONO # 0.7 10^3/uL (0.0-0.8); MONO % 6.2 % (2.0-8.0); NEUTROPHILS # 9.7 10^3/uL (1.5-8.5); NEUTROPHILS % 85.4 % (36.0-66.0); PLATELET COUNT, AUTOMATED 129 10^3/uL (150-450); RED BLOOD COUNT 4.33 10^6/uL (4.30-6.10); WHITE BLOOD COUNT 11.4 10^3/uL (4.0-10.0)
[2023-12-10 23:00] LABS: CK-MB VALUE MASS < 1.0 NG/ML (<3.6)
[2023-12-10 23:01] LABS: CPK CREATINE PHOSPHOKINASE 44 U/L (46-171); MB/CK RELATIVE INDEX 2.27 (< OR =4)
[2023-12-10 23:02] LABS: LIPASE 19 U/L (12-53)
[2023-12-10 23:03] LABS: ALBUMIN 3.3 G/DL (3.2-5.2); ALKALINE PHOSPHATASE 81 U/L (46-116); ALT/SGPT < 9 U/L (7.0-40); AST/SGOT < 8 U/L (<34); BILIRUBIN,DIRECT 0.3 MG/DL (<0.4); BILIRUBIN,TOTAL 0.9 MG/DL (0.3-1.2); BLOOD UREA NITROGEN 22 MG/DL (9-23); CARBON DIOXIDE LEVEL 27 MMOL/L (20-31); CHLORIDE LEVEL 109 MMOL/L (98-107); CREATININE FOR GFR 0.86 MG/DL (0.70-1.30); GLOMERULAR FILTRATION RATE > 60.0 (>35); GLUCOSE, FASTING 86 MG/DL (74-106); POTASSIUM SERUM 3.9 MMOL/L (3.5-5.1); SODIUM LEVEL 142 MMOL/L (136-145); TOTAL PROTEIN 6.8 G/DL (5.7-8.2)
[2023-12-11 00:15] LABS: CK-MB VALUE MASS < 1.0 NG/ML (<3.6)
[2023-12-11 00:22] LABS: CPK CREATINE PHOSPHOKINASE 48 U/L (46-171); MB/CK RELATIVE INDEX 2.08 (< OR =4)
[2023-12-11 01:08] VITALS: BP 163/82; O2SAT 98
== END 2023-12-11 01:11 | disposition home or self-care (01) ==
LOC: M ED 21:39
DX: R53.1 Weakness (principal); M25.78 Osteophyte, vertebrae; M85.80 Other specified disorders of bone density and structure, unspecified site; E78.5 Hyperlipidemia, unspecified; I10 Essential (primary) hypertension; E11.9 Type 2 diabetes mellitus without complications; C61 Malignant neoplasm of prostate; J44.9 Chronic obstructive pulmonary disease, unspecified; F32.A Depression, unspecified; F41.9 Anxiety disorder, unspecified; Z86.79 Personal history of other diseases of the circulatory system; Z95.0 Presence of cardiac pacemaker; Z88.0 Allergy status to penicillin; Z88.5 Allergy status to narcotic agent; Z79.01 Long term (current) use of anticoagulants; Z79.4 Long term (current) use of insulin; Z79.899 Other long term (current) drug therapy; Z96.641 Presence of right artificial hip joint

== ENCOUNTER 2024-11-06 15:01 | Emergency (ER) | payer MEDICARE ==
[2024-11-06 19:29] VITALS: BP 131/74; TEMP 98.5; O2SAT 97
[2024-11-06] MEDS: ACETAMINOPHEN 500 MG TAB PO ONE (19:48)
[2024-11-08] MEDS ORDERED: TRES1INJ SC (10:25)
[2024-11-08] MEDS ORDERED: MELA10TA14 PO (10:25)
[2024-11-08] MEDS ORDERED: METO1TAB32 PO (10:25)
== END 2024-11-06 20:05 | disposition home or self-care (01) ==
LOC: EDBD 15:01 → M ED 15:01
DX: S00.03XA Contusion of scalp, initial encounter (principal); M25.551 Pain in right hip; S51.812A Laceration without foreign body of left forearm, initial encounter; W01.198A Fall on same level from slipping, tripping and stumbling with subsequent striking against other object, initial encounter; M25.78 Osteophyte, vertebrae; M47.812 Spondylosis without myelopathy or radiculopathy, cervical region; M48.02 Spinal stenosis, cervical region; E11.9 Type 2 diabetes mellitus without complications; I10 Essential (primary) hypertension; J44.9 Chronic obstructive pulmonary disease, unspecified; E78.5 Hyperlipidemia, unspecified; C61 Malignant neoplasm of prostate; Z86.79 Personal history of other diseases of the circulatory system; Z88.0 Allergy status to penicillin; Z88.8 Allergy status to other drugs, medicaments and biological substances; Z95.0 Presence of cardiac pacemaker; Z79.01 Long term (current) use of anticoagulants; Z79.4 Long term (current) use of insulin; Z79.899 Other long term (current) drug therapy; Y92.009 Unspecified place in unspecified non-institutional (private) residence as the place of occurrence of the external cause; Y93.89 Activity, other specified; Y99.9 Unspecified external cause status

== ENCOUNTER → 2025-01-05 | Outpatient (CLI) | payer MEDICARE ==
[~2025-01-05] MED LIST changes: +ACET32TAB PO; +COLA100C5 PO; +INSUHUMDS SC; +INSULANT SC; +LIDO5TD TD; +MELA10TA14 PO; +MOM30SS2 PO; +QUET1TAB17 PO; -ROSU10TA61 PO; +ROSU10TA90 PO; +TRES1INJ SC
== END ==
LOC: M SOG 11:00
PROVIDERS: ATTEND Physician Assistant
DX: S72.001D Fracture of unspecified part of neck of right femur, subsequent encounter for closed fracture with routine healing (principal)

== ENCOUNTER → 2025-02-05 | Outpatient (CLI) | payer MEDICARE | LOC: M SOG 10:10 | PROVIDERS: ATTEND Physician Assistant | DX: S32.511D Fracture of superior rim of right pubis, subsequent encounter for fracture with routine healing (principal) ==

== ENCOUNTER 2025-02-28 20:52 | Emergency (ER) | payer MEDICARE ==
[2025-02-28 22:37] VITALS: O2SAT 99
[2025-03-01 00:03] VITALS: BP 179/84; TEMP 97.3
== END 2025-03-01 00:15 | disposition home or self-care (01) ==
LOC: EDBD 20:52 → M ED 20:52
DX: S51.012A Laceration without foreign body of left elbow, initial encounter (principal); S81.812A Laceration without foreign body, left lower leg, initial encounter; Y92.9 Unspecified place or not applicable; Y93.9 Activity, unspecified; Y99.9 Unspecified external cause status; W06.XXXA Fall from bed, initial encounter; I48.91 Unspecified atrial fibrillation; I50.22 Chronic systolic (congestive) heart failure; E11.9 Type 2 diabetes mellitus without complications; I11.0 Hypertensive heart disease with heart failure; J44.9 Chronic obstructive pulmonary disease, unspecified; F03.90 Unspecified dementia, unspecified severity, without behavioral disturbance, psychotic disturbance, mood disturbance, and anxiety; Z88.0 Allergy status to penicillin; Z88.8 Allergy status to other drugs, medicaments and biological substances; Z79.1 Long term (current) use of non-steroidal anti-inflammatories (NSAID); Z79.01 Long term (current) use of anticoagulants; Z79.4 Long term (current) use of insulin; Z79.899 Other long term (current) drug therapy